=== PATIENT | female | born 1960 | race African-American/Black ===

== ENCOUNTER 2017-08-11 08:28 | Emergency (ER) | payer OTHER ==
[~2017-08-11] VITALS: Ht 157.5 cm; Wt 65.6 kg
[~2017-08-11 08:28] MED LIST: BACTRIM,SEPT1 TABLET PO; BIOTIN1000 MICRO PO; CEFDINIR300 MG; DAILY VALUE1 EACH PO; FLEXERIL10 MG PO; FLONASE16 G1 BOTH NARES; HYDROCODON-ACE1 EAC1; MUCUS ER600 MG PO; NAPROSYN500 MG PO; NAPROXEN500 MG PO; PERCOCET 5/31 TABLET PO; PREDNISONE20 MG PO; PREMARIN0.625 MG PO
[2017-08-11 08:32] VITALS: BP 144/94
[2017-08-11] MEDS ORDERED: CLARITIN,ALAVAR10 MG PO (08:58)
[2017-08-11] MEDS ORDERED: ALEVE220 MG PO (08:59)
[2017-08-11 09:30] LABS: EOSINOPHIL (%) 2.5 % (0-5); EOSINOPHIL COUNT 0.1 K/uL (0-0.3); HEMATOCRIT 43.3 % (36.0-46.0); INSTRUMENT ABS NEUTROPHIL CT 0.9 K/uL; LYMPHOCYTE COUNT 2.1 K/uL (1.0-2.8); MCH 27.7 PG (29.0-34.0); MCHC 32.1 G/DL (30.0-36.0); MCV 86.4 FL (83-99); MEAN PLAT.VOLUME 11.4 uM^3 (9.5-12.4); MONOCYTE (%) 11.8 % (3-12); MONOCYTE COUNT 0.4 K/uL (0-0.8); NEUTROPHIL COUNT 0.9 K/uL (1.8-6.4); PLATELET COUNT 134 K/uL (156-360); RBC DIS.WIDTH-CV 14.3 % (11.8-14.6); RBC DIS.WIDTH-SD 45.5 % (39-53); RED BLOOD COUNT 5.01 M/uL (3.80-5.20); WHITE BLOOD COUNT 3.6 K/uL (4.1-10.2)
[2017-08-11 09:40] LABS: CHLORIDE 107 mEq/L (99-109); POTASSIUM 4.1 mEq/L (3.7-5.4); SODIUM 137 mEq/L (136-147)
[2017-08-11 09:41] LABS: GLUCOSE 96 mg/dL (70-99)
[2017-08-11 09:43] LABS: ANION GAP 7 MEQ/L (2-14)
[2017-08-11 09:45] LABS: GFR ESTIMATE (CALCULATED) > 59 mL/min/
[2017-08-11 09:46] LABS: UREA NITROGEN (BUN) 7 mg/dL (9-23)
[2017-08-11] MEDS ORDERED: MOTRIN800 MG PO (11:02)
[2017-08-11] MEDS ORDERED: FLEXERIL10 MG PO (11:02)
== END 2017-08-11 11:19 | disposition home or self-care (01) ==
LOC: EME 08:28
PROVIDERS: Emergency Medicine
DX: M79.604 Pain in right leg (principal); M79.1 Myalgia; M25.561 Pain in right knee; M25.562 Pain in left knee
CPT/HCPCS: 80048; 85025; 93971; 99281; 99284